=== PATIENT | female | born 1995 | race Caucasian/White ===

== ENCOUNTER 2021-01-10 12:30 | Emergency (ER) | payer OTHER ==
[~2021-01-10] VITALS: Ht 157.5 cm; Wt 56.7 kg
[2021-01-10 12:35] VITALS: BP_SYST 135
--- NOTE | 2021-01-10 12:38 | NUR ---
Patient to ER bed 2 to gown for evaluation. Side rails up. Report given to Mily ALANIS.
--- NOTE | 2021-01-10 12:40 | NUR ---
ER at bedside examining patient.
[2021-01-10] MEDS ORDERED: EPINEPHrine 1 MG/ML AMP IM ONE (12:45)
[2021-01-10] MEDS ORDERED: LORazepam 1 MG TABLET PO ONE (12:45)
--- NOTE | 2021-01-10 13:00 | NUR ---
First contact with patient. Patient tachypneic, very anxious and trembling. Stated her hands felt numb. Reported being stung by wasp multiple times, though this isn't her first sting. Encouraged to take deep breaths. Will continue to monitor. HR elevated but otherwise VSS. Will continue to monitor.
[2021-01-10] MEDS ORDERED: EPIN0.3P3 IM (13:46)
--- NOTE | 2021-01-10 14:00 | NUR ---
RN attempted to collect urine for UPT. RN noted sample to be not warm, and sample appeared diluted. Prior to collection, patient asked "What's the urine checking for?" Dr Felix informed. Sample not sent.
--- NOTE | 2021-01-10 14:29 | NUR ---
Patient given written and verbal discharge instructions and verbalizes understanding. ER MD discussed with patient the results and treatment provided. Patient in stable condition. ID arm band removed. Rx of Epipen (Epi 2 pack) given. Patient educated on pain management and to follow up with PMD. Pain scale 0/10. Opportunity for questions provided and answered. Medication side effect fact sheet provided.
--- NOTE | 2021-01-10 14:35 | NUR ---
RN informed patient not to drive home. Patient stated brother would be driving her home.
[2021-01-10 17:44] VITALS: BP_SYST 135
== END 2021-01-10 17:44 | disposition home or self-care (01) ==
LOC: SED 12:30
DX: T63.461A Toxic effect of venom of wasps, accidental (unintentional), initial encounter (principal); T78.2XXA Anaphylactic shock, unspecified, initial encounter; F41.0 Panic disorder [episodic paroxysmal anxiety]; X58.XXXA Exposure to other specified factors, initial encounter
CPT/HCPCS: 96372; 99283; J0171